=== PATIENT | male | born 1980 | race Caucasian/White ===

== ENCOUNTER 2018-07-23 09:11 | Emergency (ER) | payer SELFPAY ==
[2018-07-23] MEDS ORDERED: Lorazepam 2 MG/ML VIAL ONE (09:27)
== END 2018-07-23 10:20 | disposition home or self-care (01) ==
LOC: MADERS 09:11
DX: F41.9 Anxiety disorder, unspecified (principal); R00.2 Palpitations
CPT/HCPCS: 96372; J2060